=== PATIENT | male | born 1990 | race African-American/Black ===

== ENCOUNTER 2016-11-18 16:39 | Emergency (ER) | payer BC, OTHER ==
[~2016-11-18] VITALS: Ht 182.9 cm; Wt 100.0 kg
[2016-11-18 16:43] VITALS: Ht 182.9 cm; Wt 100.0 kg
[2016-11-18 17:26] LABS: ADD UMIC YES; URINE BILIRUBIN (Dip) NEGATIVE (NEGATIVE); URINE BLOOD (Dip) NEGATIVE (NEGATIVE); URINE COLOR LT. YELLOW (YELLOW); URINE GLUCOSE (Dip) NEGATIVE (NEGATIVE); URINE KETONES (Dip) NEGATIVE (NEGATIVE); URINE LEUKOCYTE ESTERASE (Dip) NEGATIVE (NEGATIVE); URINE NITRITE (Dip) NEGATIVE (NEGATIVE); URINE TOTAL PROTEIN (Dip) TRACE (NEGATIVE); URINE UROBILINOGEN (Dip) 0.2 E.U./dL (0.1-1.0)
[2016-11-18 17:35] LABS: URINE RBCS 0-2 /HPF (0)
--- NOTE | 2016-11-18 18:28 | RADRPT ---
PROCEDURE: Scrotal ultrasound CLINICAL INDICATION: Left scrotal pain. TECHNIQUE: A scrotal ultrasound was performed utilizing forte scale and Doppler imaging. COMPARISON: None. FINDINGS: The right testicle measures 4.6 x 2.3 x 3.3 cm. There is normal size and echogenicity and morphology of the right testicle with normal blood flow. The right epididymis measures 0.8 x 1.1 x 0.5 cm. Nor mal vascular flow is seen within the right epididymis. The left testicle measures 4.5 x 2.1 x 3.0 cm. There is normal size and echogenicity and morphology of the left testicle with normal blood flow. The left epididymis measures 0.7 x 1.5 x 0.8 cm. Normal vascular flow is seen within the left epididymis. Small bilateral hydroceles are identified. There is a left-sided varicocele. IMPRESSION: 1. Normal appearance of the testicles and epididymides. 2. Small bilateral hydroceles. 3. Left-sided varicocele. RPTAT: HTAR .Erick Hines MD, MD Date Time Electronically viewed and signed by .Erick Hines MD, MD on 11/18/2016 18:28 .R/
[2016-11-18] MEDS ORDERED: IBUP-1542 PO (18:33)
[2016-11-18] MEDS ORDERED: DOXY100T20 PO (18:33)
--- NOTE | 2016-11-18 18:43 | ERD ---
ER Documentation Chief Complaint Date/Time DATE: 11/18/16 TIME: 18:41 Chief Complaint Complains of left lower quadrant discomfort HPI This 26-year-old male complains of discomfort in his left testicle for the last few days. Denies any history of trauma, dysuria, hematuria. Denies any penile discharge. Denies any abdominal pain although does have some mild pain in the left inguinal region. Denies any concerns or known potential exposures to STDs recently. ROS All systems reviewed and are negative except as per history of present illness. Medications Home Meds Active Scripts Doxycycline Hyclate* (Doxycycline Hyclate*) 100 Mg Tablet.dr, 100 MG PO BID for 10 Days, TAB Prov:RULA CAI MD 11/18/16 Ibuprofen* (Ibuprofen*) 600 Mg Tablet, 600 MG PO Q6, #20 TAB Prov:RULA CAI MD 11/18/16 Allergies Allergies: Coded Allergies: No Known Allergy (Unverified , 11/18/16) PMhx/Soc Medical and Surgical Hx: pt denies Medical Hx, pt denies Surgical Hx Hx Alcohol Use: No Hx Substance Use: No Hx Tobacco Use: No Smoking Status: Never smoker Physical Exam Vitals Vital Signs Date Time Temp Pulse Resp B/P Pulse Ox O2 Delivery O2 Flow Rate FiO2 11/18/16 16:43 98.7 57 20 138/60 100 Physical Exam Const: [] Alert, [id number] per Head: Atraumatic Eyes: Normal Conjunctiva ENT: Normal External Ears, Nose and Mouth. Neck: Full range of motion..~ No meningismus. Resp: Clear to auscultation bilaterally Cardio: Regular rate and rhythm, no murmurs Abd: Soft, non tender, non distended. Normal bowel sounds. Mild tenderness in the left superior testicle area or epididymis. Mild tenderness in the spermatic cord. No penile discharge. Testicles showed no significant swelling or intratesticular lesions. The left lower quadrant abdominal tenderness Skin: No petechiae or rashes Back: No midline or flank tenderness Ext: No cyanosis, or edema Neur: Awake and alert Psych: Normal Mood and Affect Results 24 hrs Laboratory Tests Test 11/18/16 17:05 Urine Color LT. YELLOW Urine Clarity CLEAR Urine pH 8.5 Urine Specific [place] 1.015 Urine Ketones NEGATIVE Urine Nitrite NEGATIVE Urine Bilirubin NEGATIVE Urine Urobilinogen 0.2 E.U./dL Urine Leukocyte Esterase NEGATIVE Urine Microscopic RBC 0-2/HPF Urine Microscopic WBC 0-2/HPF Urine Hemoglobin NEGATIVE Urine Glucose NEGATIVE% Urine Total Protein TRACE Procedures/MDM Testicular ultrasound shows a small left-sided hydrocele otherwise no acute findings. There is negative for infection, hemoglobin, nitrates and glucose and was sent for gonorrhea chlamydia. Patient has left testicular pain or signs of varicocele. He was treated empirically for epididymitis with doxycycline ibuprofen and we will await STD testing for further treatment. Patient is advised to follow-up with primary doctor and possibly urology for persistent symptoms or return to the ER for worsening pain, swelling, new worsening symptoms. Departure Diagnosis: Primary Impression: Varicocele Condition: Stable Patient Instructions: Testicular Pain, Unclear Cause, Varicocele Additional Instructions: Urine normal. Ultrasound shows varicocele which is usually benign and resolve spontaneously but we will treat for infection. He will be called with abnormal STD results which should return within a week. Recheck otherwise for worsening pain, swelling, new worsening symptoms. RULA CAI MD November 18, 2016 18:43
== END 2016-11-18 18:41 | disposition home or self-care (01) ==
LOC: FTE 16:39
DX: I86.1 Scrotal varices (principal)
CPT/HCPCS: 76870; 81001; 87591; Z7502

== ENCOUNTER 2017-10-16 19:11 | Emergency (ER) | END 2017-10-16 21:00 | disposition left against medical advice (07) ==